=== PATIENT | male | born 1965 | race Caucasian/White ===

== ENCOUNTER 2024-02-06 18:55 | Inpatient (IN) | payer OTHER ==
[2024-02-06 19:40] VITALS: BMI 27.8
[2024-02-06] MEDS ORDERED: guaiFENesin 600 MG TABLET.ER (FP) PO PRN (20:26)
[2024-02-06] MEDS ORDERED: MAG HYDROX/AL HYDROX/SIMETH 30 ML UNIT-DOSE CUP PO PRN (20:26)
[2024-02-06] MEDS ORDERED: LOPERAMIDE HCL 2 MG CAPSULE PO PRN (20:26)
[2024-02-06] MEDS ORDERED: NALOXONE (NARCAN) HCL 4 MG/0.1 ML SPRAY NS PRN (20:26)
[2024-02-06] MEDS ORDERED: POLYETHYLENE GLYCOL (HEALTHYLAX) 3350 17 GM PACKET PO PRN (20:26)
[2024-02-06] MEDS ORDERED: MAGNESIUM HYDROX 2400MG/30ML ORAL SUSPENSION 30 ML CUP PO PRN (20:26)
[2024-02-06] MEDS ORDERED: NICOTINE POLACRILEX 2 MG GUM BUC PRN (20:26)
[2024-02-06] MEDS ORDERED: BENZOCAINE/MENTHOL (CHLORASEPTIC ) LOZENGE MM PRN (20:26)
[2024-02-06] MEDS ORDERED: BENZONATATE 200 MG CAPSULE PO PRN (20:26)
[2024-02-06] MEDS ORDERED: IBUPROFEN 400 MG TABLET (FP) PO PRN (20:26)
[2024-02-06] MEDS ORDERED: NALOXONE HCL 0.4 MG/ML VIAL IM PRN (20:26)
[2024-02-06] MEDS ORDERED: ACETAMINOPHEN 325 MG TABLET (FP) PO PRN (20:26)
[2024-02-06] MEDS: MELATONIN 5 MG TABLETS PO SCH (21:39)
[2024-02-06] MEDS: THIAMINE 100 MG TABLET PO SCH (21:39)
[2024-02-06] MEDS: hydrOXYzine PAMOATE 25 MG CAPSULE (FP) PO PRN (21:39)
[2024-02-06] MEDS: GABAPENTIN 300 MG CAPSULE PO ONE (22:48)
[2024-02-07] MEDS: metFORMIN HCL 500 MG TABLET (FP) PO SCH (08:15)
[2024-02-07] MEDS: LORazepam 2 MG/ML SDV VIAL IM ONE (09:33)
[2024-02-07] MEDS: ASPIRIN 81 MG CHEWABLE TABLETS PO SCH (09:33)
[2024-02-07] MEDS: NICOTINE 14 MG/24 HOURS TOPICAL PATCH TD SCH (09:33)
[2024-02-07] MEDS: PRENATAL VITAMINS W/ FOLIC ACID TABLET (FP) PO SCH (09:34)
[2024-02-07 11:42] LABS: HEMATOCRIT 36.1 % (35.4-49); MCH 30.3 pg (25.7-33.7); MCHC 33.1 g/dl (32.0-35.9); MEAN CELL VOLUME 91.3 fl (80-96); MEAN PLT VOLUME 8.1 fl (7.5-11.1); PLATELET COUNT 264 10^3/uL (134-434); RBC 3.95 M/mm3 (4.00-5.60); RDW 14.6 % (11.9-15.9); WHITE BLOOD COUNT 7.9 K/mm3 (4.0-10.0)
[2024-02-07 11:43] LABS: CHLORIDE 105 mmol/L (98-107); POTASSIUM 4.4 mmol/L (3.5-5.1); SODIUM 140 mmol/L (136-145)
[2024-02-07 11:53] LABS: ALBUMIN 2.8 g/dl (3.4-5.0)
[2024-02-07 11:54] LABS: ANION GAP 7 mmol/L (4-13); BLOOD UREA NITROGEN 13.3 mg/dL (7-18); CALCIUM 9.1 mg/dL (8.5-10.1); CO2 28 mmol/L (21-32); GLUCOSE,RANDOM 223 mg/dL (74-106)
[2024-02-07 11:57] LABS: CREATININE 0.8 mg/dL (0.55-1.3); SGOT/AST 23 U/L (15-37); SGPT/ALT 35 U/L (13-61)
[2024-02-07 11:58] LABS: BILIRUBIN,TOTAL 0.8 mg/dL (0.2-1)
[2024-02-07 11:59] LABS: TOT PROT 5.6 g/dl (6.4-8.2)
[2024-02-07 12:00] LABS: ALK PHOS 77 U/L (45-117)
[2024-02-07 15:05] LABS: SYPHILIS W/ RPR CONF NON-REACTIVE (NONREACTIVE)
[2024-02-07] MEDS: GABAPENTIN 400 MG CAPSULE PO SCH (17:03)
[2024-02-08] MEDS: IBUPROFEN 600 MG TABLET (FP) PO PRN (10:24)
[2024-02-08 13:00] VITALS: BP 151/80; PULSE 79; RESP 18; TEMP 98.3
== END 2024-02-08 14:25 | disposition home or self-care (01) | DRG 772 ==
LOC: YASAS 18:55 → Y3NR 21:12 → Y3E 02-08 12:19
PROVIDERS: ADMIT Psychiatry & Neurology Pain Medicine; ATTEND Psychiatry & Neurology Pain Medicine
PROC: HZ42ZZZ Group Counseling for Substance Abuse Treatment, Cognitive-Behavioral (ICD-10-PCS; principal; 2024-02-06)
DX: F10.20 Alcohol dependence, uncomplicated (principal); F14.20 Cocaine dependence, uncomplicated; F17.210 Nicotine dependence, cigarettes, uncomplicated; F31.9 Bipolar disorder, unspecified; F20.9 Schizophrenia, unspecified; F41.9 Anxiety disorder, unspecified; G40.909 Epilepsy, unspecified, not intractable, without status epilepticus; I25.10 Atherosclerotic heart disease of native coronary artery without angina pectoris; I10 Essential (primary) hypertension; Z95.5 Presence of coronary angioplasty implant and graft; E11.9 Type 2 diabetes mellitus without complications; Z79.84 Long term (current) use of oral hypoglycemic drugs; I69.854 Hemiplegia and hemiparesis following other cerebrovascular disease affecting left non-dominant side; Z59.00 Homelessness unspecified
CPT/HCPCS: 36415; 71045-TC-FY; 80053; 80305; 80307; 82962; 85027; 86780; 86803; 87811; 93005; 93010